=== PATIENT | female | born 1975 | race Caucasian/White ===

== ENCOUNTER 2018-04-11 15:57 | Emergency (ER) | payer OTHER, SELFPAY ==
[2018-04-11 16:12] VITALS: BP 102/61; PULSE 75; RESP 18; TEMP 35.8; O2SAT 100; BMI 22.7
--- NOTE | 2018-04-11 16:16 | DI.RAD.S_ITS ---
PROCEDURE: XR FOOT RT MIN 3V INDICATIONS: Twisted distal foot, pain to medial metarsals, no wt bearing TECHNIQUE: 3 views of the foot were acquired. COMPARISON: None. FINDINGS: Bones: Comminuted fractures of the bases of the second and third metatarsals noted. Fractures extend into the tarsal-metatarsal joints. Slight widening of the Lisfranc joint. Soft tissues: No tibiotalar joint effusion. Achilles tendon appears normal. IMPRESSION: 1. Comminuted, intra-articular proximal second and third metatarsal fractures. 2. Slight widening of the Lisfranc joint concerning for Lisfranc fracture-dislocation. Dictated by: Ele Car MD, PhD on 04/11/2018 at 17:01 Approved by: Ele Car MD, PhD on 04/11/2018 at 17:03
--- NOTE | 2018-04-11 18:58 | ED.LOWEXIN ---
HPI - Extremity Injury (Lower) <ALFA Ennis - Last Filed: 04/11/18 22:26> General Chief Complaint: Extremity Injury, Lower Stated Complaint: RIGHT FOOT INJURY Time Seen by Provider: 04/11/18 19:00 History of Present Illness HPI Narrative: 42-year-old female here for complaint of pain into her right foot. She was out hiking today where the edge of the trail gave out underneath her causing her to slide down the bank approximately 10 ft causing impact to the bottom of her right foot. He reports increased pain with movement and ambulation of the right foot. She denies any other injuries. She denies any loss of consciousness. No other concerns or complaints. MD complaint: foot injury Related Data Previous Rx's Medication Instructions Recorded hydrocodone-acetaminophen 2 tab PO Q4-6H PRN #15 tab 04/11/18 Allergies Allergy/AdvReac Type Severity Reaction Status Date / Time latex Allergy Rash Verified 04/11/18 16:16 Review of Systems <ALFA Ennis - Last Filed: 04/11/18 22:26> Constitutional Denies chills, Denies fever(s), Denies lethargy and Denies weakness Eyes Denies change in vision, Denies eye discharge, Denies irritation and Denies loss of vision ENT Ears, Nose, Mouth, and Throat: Denies change in voice, Denies neck pain and Denies sore throat Cardiovascular Denies chest pain, Denies irregular heart rhythm, Denies lightheadedness, Denies palpitations, Denies dyspnea, Denies dyspnea on exertion and Denies orthopnea Respiratory Denies cough, Denies dyspnea, Denies dyspnea on exertion and Denies wheezing Gastrointestinal Gastrointestinal: Denies abdominal pain, Denies change in bowel habits, Denies diarrhea, Denies nausea and Denies vomiting Genitourinary Denies hematuria, Denies flank pain, Denies urinary incontinence and Denies urinary urgency Musculoskeletal Denies neck pain Comments: Right foot pain and swelling Integumentary/Breasts Denies pruritus, Denies erythema, Denies rash and Denies wounds Neurologic Denies confusion, Denies loss of vision and Denies weakness Psychiatric Denies anxiety, Denies confusion, Denies depression, Denies homicidal ideation and Denies suicidal ideation Endocrine Denies palpitations Allergic/Immunologic Denies wheezing Exam <ALFA Ennis - Last Filed: 04/11/18 22:26> Initial Vital Signs Initial Vital Signs: Vital Signs Temperature 96.5 F L 04/11/18 16:12 Pulse Rate 75 04/11/18 16:12 Respiratory Rate 18 04/11/18 16:12 Blood Pressure 102/61 04/11/18 16:12 Pulse Oximetry 100 04/11/18 16:12 Const General: cooperative and well developed Nutritional Appearance: well nourished Orientation: alert, awake, oriented x3 and not confused [facility] Mouth: oral mucosae normal and moist mucous membranes Eyes Conjunctivae: conjunctivae normal Sclera: sclerae normal Pupils: PERRL EOM: EOM intact bilaterally Resp Effort & Inspection: normal respiratory effort, able to speak in complete sentences, no respiratory distress and no use of accessory muscles Auscultation: clear to auscultation bilaterally, no rales, no rhonchi and no wheezes Cardio Rate: regular rate Rhythm: regular rhythm Heart Sounds: no click, no gallops, no murmurs and no rubs Skin General: no rashes or lesions noted, No jaundice and No petechiae Extrem Other: Swelling and ecchymosis to the distal right foot. Distal sensation is intact. Distal range of motion is intact. Distal cap refill less than 2 sec. No open lesions. <Orlin Helton MD - Last Filed: 05/15/18 09:20> Initial Vital Signs Initial Vital Signs: Vital Signs Temperature 96.5 F L 04/11/18 16:12 Pulse Rate 75 04/11/18 16:12 Respiratory Rate 18 04/11/18 16:12 Blood Pressure 102/61 04/11/18 16:12 Pulse Oximetry 100 04/11/18 16:12 Course <ALFA Enins - Last Filed: 04/11/18 22:26> Orders Ordered: Discontinued Medications Hydrocodone Bitart/Acetaminophen ([place] 5/325) 2 tab PO NOW ONE Stop: 04/11/18 18:59 Last Admin: 04/11/18 19:19 Dose: 2 tab Vital Signs - 8 hr 04/11/18 16:12 04/11/18 20:17 Temperature 96.5 F L 98.4 F Pulse Rate 75 79 Respiratory Rate 18 16 Blood Pressure 102/61 Blood Pressure [Left Arm] 112/78 Pulse Oximetry 100 <Orlin Helton MD - Last Filed: 05/15/18 09:20> Orders Ordered: Discontinued Medications Hydrocodone Bitart/Acetaminophen ([place] 5/325) 2 tab PO NOW ONE Stop: 04/11/18 18:59 Last Admin: 04/11/18 19:19 Dose: 2 tab Vital Signs - 8 hr 04/11/18 16:12 04/11/18 20:17 Temperature 96.5 F L 98.4 F Pulse Rate 75 79 Respiratory Rate 18 16 Blood Pressure 102/61 Blood Pressure [Left Arm] 112/78 Pulse Oximetry 100 [facility] - Extremity Injury (Lower) <ALFA Ennis - Last Filed: 04/11/18 22:26> Imaging Data Right foot : Radiologist's impression: PROCEDURE: XR FOOT RT MIN 3V INDICATIONS: Twisted distal foot, pain to medial metarsals, no wt bearing TECHNIQUE: 3 views of the foot were acquired. COMPARISON: None. FINDINGS: Bones: Comminuted fractures of the bases of the second and third metatarsals noted. Fractures extend into the tarsal-metatarsal joints. Slight widening of the Lisfranc joint. Soft tissues: No tibiotalar joint effusion. Achilles tendon appears normal. IMPRESSION: 1. Comminuted, intra-articular proximal second and third metatarsal fractures. 2. Slight widening of the Lisfranc joint concerning for Lisfranc fracture-dislocation. Dictated by: Ele Car MD, PhD on 04/11/2018 at 17:01 Approved by: Ele Car MD, PhD on 04/11/2018 at 17:03 [facility] Narrative Medical decision making narrative: X-ray of the right foot was obtained and showed Comminuted, intra-articular proximal second and third metatarsal fractures. X-ray also shows widening of the Lisfranc joint indicating possible fracture-dislocation. She is placed in a posterior leg splint and issued crutches for nonweightbearing. [id number] Tylenol Motrin as needed for any discomfort. [place] is prescribed for breakthrough pain. Ice and elevation to help with swelling. She is referred to Orthopedics she is to call Orthopedics office 1st thing Friday morning to schedule follow-up appointment. For any worsening symptoms return to the emergency room. Discharge Plan Departure Patient Disposition: Home, Self-Care Clinical Impression: Fracture of foot Discharge Date/Time: 04/11/18 20:29 Interventions: ED Discharge Assessment Last Done: 04/11/18 20:27 Instructions: DI for Foot Fracture Activity Restrictions/Additional Instructions: X-ray of of the right foot shows a fracture to 2nd and 3rd metatarsals. He has been placed in a splint for comfort and support use as directed. Crutches are issued for nonweightbearing also use as directed. Ice and elevation to help with swelling over the next several days. Use [id number] Tylenol or Motrin as needed for any discomfort. Prescription of [place] is given for breakthrough pain use as directed. Follow up with Orthopedics you may either set up orthopedic appointment in [place] or utilize Orthopedics here. Follow up later this week with Orthopedics for further treatment. For any worsening symptoms return to the emergency room. Prescriptions: New hydrocodone-acetaminophen 5-325 mg tablet 2 tab PO Q4-6H PRN (Reason: pain) Qty: 15 RF: 0 Referrals: Sherman Rust MD [Physician] - <Orlin Helton MD - Last Filed: 05/15/18 09:20> Sign Out Provider Sign Out Attestation: The PA/PHOTOGRAPH RETOUCHER functioned independently for the care of this pt, I was available, but not asked to participate in care. I am unable to determine appropriateness of management without personally examining the pt.
[2018-04-11] MEDS: HYDROCODONE/ACET 5/325 TABLET 2 TAB PO (19:19)
--- NOTE | 2018-04-11 19:27 | ED_ITS ---
HPI - Extremity Injury (Lower) <ALFA Ennis - Last Filed: 04/11/18 22:26> General Chief Complaint: Extremity Injury, Lower Stated Complaint: RIGHT FOOT INJURY Time Seen by Provider: 04/11/18 19:00 History of Present Illness HPI Narrative: 42-year-old female here for complaint of pain into her right foot. She was out hiking today where the edge of the trail gave out underneath her causing her to slide down the bank approximately 10 ft causing impact to the bottom of her right foot. He reports increased pain with movement and ambulation of the right foot. She denies any other injuries. She denies any loss of consciousness. No other concerns or complaints. MD complaint: foot injury Related Data Previous Rx's Medication Instructions Recorded hydrocodone-acetaminophen 2 tab PO Q4-6H PRN #15 tab 04/11/18 Allergies Allergy/AdvReac Type Severity Reaction Status Date / Time latex Allergy Rash Verified 04/11/18 16:16 Review of Systems <ALFA Ennis - Last Filed: 04/11/18 22:26> Constitutional Denies chills, Denies fever(s), Denies lethargy and Denies weakness Eyes Denies change in vision, Denies eye discharge, Denies irritation and Denies loss of vision ENT Ears, Nose, Mouth, and Throat: Denies change in voice, Denies neck pain and Denies sore throat Cardiovascular Denies chest pain, Denies irregular heart rhythm, Denies lightheadedness, Denies palpitations, Denies dyspnea, Denies dyspnea on exertion and Denies orthopnea Respiratory Denies cough, Denies dyspnea, Denies dyspnea on exertion and Denies wheezing Gastrointestinal Gastrointestinal: Denies abdominal pain, Denies change in bowel habits, Denies diarrhea, Denies nausea and Denies vomiting Genitourinary Denies hematuria, Denies flank pain, Denies urinary incontinence and Denies urinary urgency Musculoskeletal Denies neck pain Comments: Right foot pain and swelling Integumentary/Breasts Denies pruritus, Denies erythema, Denies rash and Denies wounds Neurologic Denies confusion, Denies loss of vision and Denies weakness Psychiatric Denies anxiety, Denies confusion, Denies depression, Denies homicidal ideation and Denies suicidal ideation Endocrine Denies palpitations Allergic/Immunologic Denies wheezing Exam <ALFA Ennis - Last Filed: 04/11/18 22:26> Initial Vital Signs Initial Vital Signs: Vital Signs Temperature 96.5 F L 04/11/18 16:12 Pulse Rate 75 04/11/18 16:12 Respiratory Rate 18 04/11/18 16:12 Blood Pressure 102/61 04/11/18 16:12 Pulse Oximetry 100 04/11/18 16:12 Const General: cooperative and well developed Nutritional Appearance: well nourished Orientation: alert, awake, oriented x3 and not confused [facility] Mouth: oral mucosae normal and moist mucous membranes Eyes Conjunctivae: conjunctivae normal Sclera: sclerae normal Pupils: PERRL EOM: EOM intact bilaterally Resp Effort & Inspection: normal respiratory effort, able to speak in complete sentences, no respiratory distress and no use of accessory muscles Auscultation: clear to auscultation bilaterally, no rales, no rhonchi and no wheezes Cardio Rate: regular rate Rhythm: regular rhythm Heart Sounds: no click, no gallops, no murmurs and no rubs Skin General: no rashes or lesions noted, No jaundice and No petechiae Extrem Other: Swelling and ecchymosis to the distal right foot. Distal sensation is intact. Distal range of motion is intact. Distal cap refill less than 2 sec. No open lesions. <rOlin Helton MD - Last Filed: 05/15/18 09:20> Initial Vital Signs Initial Vital Signs: Vital Signs Temperature 96.5 F L 04/11/18 16:12 Pulse Rate 75 04/11/18 16:12 Respiratory Rate 18 04/11/18 16:12 Blood Pressure 102/61 04/11/18 16:12 Pulse Oximetry 100 04/11/18 16:12 Course <ALFA Ennis - Last Filed: 04/11/18 22:26> Orders Ordered: Discontinued Medications Hydrocodone Bitart/Acetaminophen ([place] 5/325) 2 tab PO NOW ONE Stop: 04/11/18 18:59 Last Admin: 04/11/18 19:19 Dose: 2 tab Vital Signs - 8 hr 04/11/18 16:12 04/11/18 20:17 Temperature 96.5 F L 98.4 F Pulse Rate 75 79 Respiratory Rate 18 16 Blood Pressure 102/61 Blood Pressure [Left Arm] 112/78 Pulse Oximetry 100 <Orlin Helton MD - Last Filed: 05/15/18 09:20> Orders Ordered: Discontinued Medications Hydrocodone Bitart/Acetaminophen ([place] 5/325) 2 tab PO NOW ONE Stop: 04/11/18 18:59 Last Admin: 04/11/18 19:19 Dose: 2 tab Vital Signs - 8 hr 04/11/18 16:12 04/11/18 20:17 Temperature 96.5 F L 98.4 F Pulse Rate 75 79 Respiratory Rate 18 16 Blood Pressure 102/61 Blood Pressure [Left Arm] 112/78 Pulse Oximetry 100 [facility] - Extremity Injury (Lower) <ALFA Ennis - Last Filed: 04/11/18 22:26> Imaging Data Right foot : Radiologist's impression: PROCEDURE: XR FOOT RT MIN 3V INDICATIONS: Twisted distal foot, pain to medial metarsals, no wt bearing TECHNIQUE: 3 views of the foot were acquired. COMPARISON: None. FINDINGS: Bones: Comminuted fractures of the bases of the second and third metatarsals noted. Fractures extend into the tarsal-metatarsal joints. Slight widening of the Lisfranc joint. Soft tissues: No tibiotalar joint effusion. Achilles tendon appears normal. IMPRESSION: 1. Comminuted, intra-articular proximal second and third metatarsal fractures. 2. Slight widening of the Lisfranc joint concerning for Lisfranc fracture- dislocation. Dictated by: Ele Car MD, PhD on 04/11/2018 at 17:01 Approved by: Ele Car MD, PhD on 04/11/2018 at 17:03 [facility] Narrative Medical decision making narrative: X-ray of the right foot was obtained and showed Comminuted, intra-articular proximal second and third metatarsal fractures. X-ray also shows widening of the Lisfranc joint indicating possible fracture-dislocation. She is placed in a posterior leg splint and issued crutches for nonweightbearing. [id number] Tylenol Motrin as needed for any discomfort. [place] is prescribed for breakthrough pain. Ice and elevation to help with swelling. She is referred to Orthopedics she is to call Orthopedics office 1st thing Friday morning to schedule follow-up appointment. For any worsening symptoms return to the emergency room. Discharge Plan Departure Patient Disposition: Home, Self-Care Clinical Impression: Fracture of foot Discharge Date/Time: 04/11/18 20:29 Interventions: ED Discharge Assessment Last Done: 04/11/18 20:27 Instructions: DI for Foot Fracture Activity Restrictions/Additional Instructions: X-ray of of the right foot shows a fracture to 2nd and 3rd metatarsals. He has been placed in a splint for comfort and support use as directed. Crutches are issued for nonweightbearing also use as directed. Ice and elevation to help with swelling over the next several days. Use [id number] Tylenol or Motrin as needed for any discomfort. Prescription of [place] is given for breakthrough pain use as directed. Follow up with Orthopedics you may either set up orthopedic appointment in [place] or utilize Orthopedics here. Follow up later this week with Orthopedics for further treatment. For any worsening symptoms return to the emergency room. Prescriptions: New hydrocodone-acetaminophen 5-325 mg tablet 2 tab PO Q4-6H PRN (Reason: pain) Qty: 15 RF: 0 Referrals: Sherman Rust MD [Physician] - <Orlin Helton MD - Last Filed: 05/15/18 09:20> Sign Out Provider Sign Out Attestation: The PA/SLITTING MACHINE OPERATOR HELPER functioned independently for the care of this pt, I was available, but not asked to participate in care. I am unable to determine appropriateness of management without personally examining the pt.
[2018-04-11 20:17] VITALS: BP 112/78; PULSE 79; RESP 16; TEMP 36.9
--- NOTE | 2018-04-13 19:27 | ED.LOWEXIN ---
HPI - Extremity Injury (Lower) <ALFA Ennis - Last Filed: 04/13/18 22:21> General Chief Complaint: Extremity Injury, Lower Stated Complaint: RIGHT FOOT INJURY Time Seen by Provider: 04/11/18 19:00 History of Present Illness HPI Narrative: 42-year-old female here for complaint of pain into her right foot after she slid off [place] earlier today. She states that she was walking on a trail when the trail gave way causing her to slip down the side of the trail causing pain to her right foot. She reports increased pain with ambulation. She denies any other injuries at this time. She denies hitting her head no loss of consciousness. Related Data Previous Rx's Medication Instructions Recorded hydrocodone-acetaminophen 2 tab PO Q4-6H PRN #15 tab 04/11/18 Allergies Allergy/AdvReac Type Severity Reaction Status Date / Time latex Allergy Rash Verified 04/11/18 16:16 Review of Systems <ALFA Ennis - Last Filed: 04/13/18 22:21> Constitutional Denies weakness Eyes Denies loss of vision ENT Ears, Nose, Mouth, and Throat: Denies change in voice, Denies neck pain and Denies sore throat Cardiovascular Denies chest pain, Denies irregular heart rhythm, Denies lightheadedness, Denies palpitations, Denies dyspnea, Denies dyspnea on exertion and Denies orthopnea Respiratory Denies cough, Denies dyspnea, Denies dyspnea on exertion and Denies wheezing Gastrointestinal Gastrointestinal: Denies abdominal pain, Denies change in bowel habits, Denies diarrhea, Denies nausea and Denies vomiting Genitourinary Denies hematuria, Denies flank pain, Denies urinary incontinence and Denies urinary urgency Musculoskeletal Denies neck pain Comments: Right foot pain Integumentary/Breasts Denies pruritus, Denies erythema, Denies rash and Denies wounds Neurologic Denies confusion, Denies loss of vision and Denies weakness Psychiatric Denies confusion Endocrine Denies palpitations Allergic/Immunologic Denies wheezing Exam <ALFA Ennis - Last Filed: 04/13/18 22:21> Initial Vital Signs Initial Vital Signs: Vital Signs Temperature 96.5 F L 04/11/18 16:12 Pulse Rate 75 04/11/18 16:12 Respiratory Rate 18 04/11/18 16:12 Blood Pressure 102/61 04/11/18 16:12 Pulse Oximetry 100 04/11/18 16:12 Const General: cooperative and well developed Nutritional Appearance: well nourished Orientation: alert, awake, oriented x3 and not confused [facility] Mouth: oral mucosae normal and moist mucous membranes Eyes General: appearance normal, both eyes and all related structures Eyelids: eyelids normal Conjunctivae: conjunctivae normal Sclera: sclerae normal Pupils: PERRL EOM: EOM intact bilaterally Resp Effort & Inspection: normal respiratory effort, able to speak in complete sentences, no respiratory distress and no use of accessory muscles Auscultation: clear to auscultation bilaterally, no rales, no rhonchi and no wheezes Cardio Rate: regular rate Rhythm: regular rhythm Heart Sounds: no click, no gallops, no murmurs and no rubs Pulses: normal peripheral pulses Skin General: no rashes or lesions noted, No jaundice and No petechiae Extrem Other: Swelling and ecchymosis to the right foot. No open lesions. Distal sensation is intact. Distal cap refill less than 2 sec. Range of motion is intact distally <Orlin Helton MD - Last Filed: 05/15/18 09:19> Initial Vital Signs Initial Vital Signs: Vital Signs Temperature 96.5 F L 04/11/18 16:12 Pulse Rate 75 04/11/18 16:12 Respiratory Rate 18 04/11/18 16:12 Blood Pressure 102/61 04/11/18 16:12 Pulse Oximetry 100 04/11/18 16:12 Course <ALFA Ennis - Last Filed: 04/13/18 22:21> Orders Ordered: Discontinued Medications Hydrocodone Bitart/Acetaminophen ([place] 5/325) 2 tab PO NOW ONE Stop: 04/11/18 18:59 Last Admin: 04/11/18 19:19 Dose: 2 tab <Orlin Helton MD - Last Filed: 05/15/18 09:19> Orders Ordered: Discontinued Medications Hydrocodone Bitart/Acetaminophen ([place] 5/325) 2 tab PO NOW ONE Stop: 04/11/18 18:59 Last Admin: 04/11/18 19:19 Dose: 2 tab [facility] - Extremity Injury (Lower) <ALFA Ennis - Last Filed: 04/13/18 22:21> Imaging Data Foot : Radiologist's impression: PROCEDURE: XR FOOT RT MIN 3V INDICATIONS: Twisted distal foot, pain to medial metarsals, no wt bearing TECHNIQUE: 3 views of the foot were acquired. COMPARISON: None. FINDINGS: Bones: Comminuted fractures of the bases of the second and third metatarsals noted. Fractures extend into the tarsal-metatarsal joints. Slight widening of the Lisfranc joint. Soft tissues: No tibiotalar joint effusion. Achilles tendon appears normal. IMPRESSION: 1. Comminuted, intra-articular proximal second and third metatarsal fractures. 2. Slight widening of the Lisfranc joint concerning for Lisfranc fracture-dislocation. Dictated by: Ele Car MD, PhD on 04/11/2018 at 17:01 [facility] Narrative Medical decision making narrative: X-ray of of the right foot shows a fracture to 2nd and 3rd metatarsals. He has been placed in a splint for comfort and support use as directed. Crutches are issued for nonweightbearing also use as directed. Ice and elevation to help with swelling over the next several days. Use [id number] Tylenol or Motrin as needed for any discomfort. Prescription of [place] is given for breakthrough pain use as directed. Follow up with Orthopedics you may either set up orthopedic appointment in [place] or utilize Orthopedics here. Follow up later this week with Orthopedics for further treatment. For any worsening symptoms return to the emergency room. Discharge Plan Departure Patient Disposition: Home, Self-Care Clinical Impression: Fracture of foot Discharge Date/Time: 04/11/18 20:29 Interventions: ED Discharge Assessment Last Done: 04/11/18 20:27 Instructions: DI for Foot Fracture Activity Restrictions/Additional Instructions: X-ray of of the right foot shows a fracture to 2nd and 3rd metatarsals. He has been placed in a splint for comfort and support use as directed. Crutches are issued for nonweightbearing also use as directed. Ice and elevation to help with swelling over the next several days. Use [id number] Tylenol or Motrin as needed for any discomfort. Prescription of [place] is given for breakthrough pain use as directed. Follow up with Orthopedics you may either set up orthopedic appointment in [place] or utilize Orthopedics here. Follow up later this week with Orthopedics for further treatment. For any worsening symptoms return to the emergency room. Prescriptions: New hydrocodone-acetaminophen 5-325 mg tablet 2 tab PO Q4-6H PRN (Reason: pain) Qty: 15 RF: 0 Referrals: Sherman Rust MD [Physician] - <Orlin Helton MD - Last Filed: 05/15/18 09:19> Sign Out Provider Sign Out Attestation: The PA/MONITOR WORKER functioned independently for the care of this pt, I was available, but not asked to participate in care. I am unable to determine appropriateness of management without personally examining the pt.
--- NOTE | 2018-04-13 22:20 | ED_ITS ---
HPI - Extremity Injury (Lower) <ALFA Ennis - Last Filed: 04/13/18 22:21> General Chief Complaint: Extremity Injury, Lower Stated Complaint: RIGHT FOOT INJURY Time Seen by Provider: 04/11/18 19:00 History of Present Illness HPI Narrative: 42-year-old female here for complaint of pain into her right foot after she slid off atrial earlier today. She states that she was walking on a trail when the trail gave way causing her to slip down the side of the trail causing pain to her right foot. She reports increased pain with ambulation. She denies any other injuries at this time. She denies hitting her head no loss of consciousness. Related Data Previous Rx's Medication Instructions Recorded hydrocodone-acetaminophen 2 tab PO Q4-6H PRN #15 tab 04/11/18 Allergies Allergy/AdvReac Type Severity Reaction Status Date / Time latex Allergy Rash Verified 04/11/18 16:16 Review of Systems <ALFA Ennis - Last Filed: 04/13/18 22:21> Constitutional Denies weakness Eyes Denies loss of vision ENT Ears, Nose, Mouth, and Throat: Denies change in voice, Denies neck pain and Denies sore throat Cardiovascular Denies chest pain, Denies irregular heart rhythm, Denies lightheadedness, Denies palpitations, Denies dyspnea, Denies dyspnea on exertion and Denies orthopnea Respiratory Denies cough, Denies dyspnea, Denies dyspnea on exertion and Denies wheezing Gastrointestinal Gastrointestinal: Denies abdominal pain, Denies change in bowel habits, Denies diarrhea, Denies nausea and Denies vomiting Genitourinary Denies hematuria, Denies flank pain, Denies urinary incontinence and Denies urinary urgency Musculoskeletal Denies neck pain Comments: Right foot pain Integumentary/Breasts Denies pruritus, Denies erythema, Denies rash and Denies wounds Neurologic Denies confusion, Denies loss of vision and Denies weakness Psychiatric Denies confusion Endocrine Denies palpitations Allergic/Immunologic Denies wheezing Exam <ALFA Ennis - Last Filed: 04/13/18 22:21> Initial Vital Signs Initial Vital Signs: Vital Signs Temperature 96.5 F L 04/11/18 16:12 Pulse Rate 75 04/11/18 16:12 Respiratory Rate 18 04/11/18 16:12 Blood Pressure 102/61 04/11/18 16:12 Pulse Oximetry 100 04/11/18 16:12 Const General: cooperative and well developed Nutritional Appearance: well nourished Orientation: alert, awake, oriented x3 and not confused [facility] Mouth: oral mucosae normal and moist mucous membranes Eyes General: appearance normal, both eyes and all related structures Eyelids: eyelids normal Conjunctivae: conjunctivae normal Sclera: sclerae normal Pupils: PERRL EOM: EOM intact bilaterally Resp Effort & Inspection: normal respiratory effort, able to speak in complete sentences, no respiratory distress and no use of accessory muscles Auscultation: clear to auscultation bilaterally, no rales, no rhonchi and no wheezes Cardio Rate: regular rate Rhythm: regular rhythm Heart Sounds: no click, no gallops, no murmurs and no rubs Pulses: normal peripheral pulses Skin General: no rashes or lesions noted, No jaundice and No petechiae Extrem Other: Swelling and ecchymosis to the right foot. No open lesions. Distal sensation is intact. Distal cap refill less than 2 sec. Range of motion is intact distally <Orlin Helton MD - Last Filed: 05/15/18 09:19> Initial Vital Signs Initial Vital Signs: Vital Signs Temperature 96.5 F L 04/11/18 16:12 Pulse Rate 75 04/11/18 16:12 Respiratory Rate 18 04/11/18 16:12 Blood Pressure 102/61 04/11/18 16:12 Pulse Oximetry 100 04/11/18 16:12 Course <ALFA Ennis - Last Filed: 04/13/18 22:21> Orders Ordered: Discontinued Medications Hydrocodone Bitart/Acetaminophen ([place] 5/325) 2 tab PO NOW ONE Stop: 04/11/18 18:59 Last Admin: 04/11/18 19:19 Dose: 2 tab <Orlin Helton MD - Last Filed: 05/15/18 09:19> Orders Ordered: Discontinued Medications Hydrocodone Bitart/Acetaminophen ([place] 5/325) 2 tab PO NOW ONE Stop: 04/11/18 18:59 Last Admin: 04/11/18 19:19 Dose: 2 tab MDM - Extremity Injury (Lower) <ALFA Ennis - Last Filed: 04/13/18 22:21> Imaging Data Foot : Radiologist's impression: PROCEDURE: XR FOOT RT MIN 3V INDICATIONS: Twisted distal foot, pain to medial metarsals, no wt bearing TECHNIQUE: 3 views of the foot were acquired. COMPARISON: None. FINDINGS: Bones: Comminuted fractures of the bases of the second and third metatarsals noted. Fractures extend into the tarsal-metatarsal joints. Slight widening of the Lisfranc joint. Soft tissues: No tibiotalar joint effusion. Achilles tendon appears normal. IMPRESSION: 1. Comminuted, intra-articular proximal second and third metatarsal fractures. 2. Slight widening of the Lisfranc joint concerning for Lisfranc fracture- dislocation. Dictated by: Ele Car MD, PhD on 04/11/2018 at 17:01 [facility] Narrative Medical decision making narrative: X-ray of of the right foot shows a fracture to 2nd and 3rd metatarsals. He has been placed in a splint for comfort and support use as directed. Crutches are issued for nonweightbearing also use as directed. Ice and elevation to help with swelling over the next several days. Use [id number] Tylenol or Motrin as needed for any discomfort. Prescription of [place] is given for breakthrough pain use as directed. Follow up with Orthopedics you may either set up orthopedic appointment in [place] or utilize Orthopedics here. Follow up later this week with Orthopedics for further treatment. For any worsening symptoms return to the emergency room. Discharge Plan Departure Patient Disposition: Home, Self-Care Clinical Impression: Fracture of foot Discharge Date/Time: 04/11/18 20:29 Interventions: ED Discharge Assessment Last Done: 04/11/18 20:27 Instructions: DI for Foot Fracture Activity Restrictions/Additional Instructions: X-ray of of the right foot shows a fracture to 2nd and 3rd metatarsals. He has been placed in a splint for comfort and support use as directed. Crutches are issued for nonweightbearing also use as directed. Ice and elevation to help with swelling over the next several days. Use [id number] Tylenol or Motrin as needed for any discomfort. Prescription of [place] is given for breakthrough pain use as directed. Follow up with Orthopedics you may either set up orthopedic appointment in [place] or utilize Orthopedics here. Follow up later this week with Orthopedics for further treatment. For any worsening symptoms return to the emergency room. Prescriptions: New hydrocodone-acetaminophen 5-325 mg tablet 2 tab PO Q4-6H PRN (Reason: pain) Qty: 15 RF: 0 Referrals: Sherman Rust MD [Physician] - <Orlin Helton MD - Last Filed: 05/15/18 09:19> Sign Out Provider Sign Out Attestation: The PA/ENAMEL MACHINE OPERATOR functioned independently for the care of this pt, I was available, but not asked to participate in care. I am unable to determine appropriateness of management without personally examining the pt.
== END 2018-04-11 20:29 | disposition home or self-care (01) ==
PROVIDERS: Emergency Provider Nurse Practitioner Family
DX: S92.901A Unspecified fracture of right foot, initial encounter for closed fracture (principal); W01.0XXA Fall on same level from slipping, tripping and stumbling without subsequent striking against object, initial encounter
CPT/HCPCS: 29515; 73630; 99282; 99283